=== PATIENT | female | born 1965 | race Caucasian/White ===

== ENCOUNTER 2016-10-11 19:34 | Emergency (ER) | payer OTHER ==
[2016-10-11 21:49] LABS: HEMOGLOBIN 13.8 gm/dl (12.3-15.3); RED BLOOD COUNT 4.58 M/UL (4.00-5.10); WHITE BLOOD COUNT 7.2 K/UL (4.5-11.0)
[2016-10-11 22:06] LABS: BUN/CREATININE RATIO 24 (0-10)
== END 2016-10-12 00:35 | disposition home or self-care (01) ==
LOC: ER1 19:34
PROVIDERS: Physician Assistant
DX: R07.9 Chest pain, unspecified (principal); R06.02 Shortness of breath; M79.662 Pain in left lower leg; M79.661 Pain in right lower leg; D68.2 Hereditary deficiency of other clotting factors; I10 Essential (primary) hypertension; J44.9 Chronic obstructive pulmonary disease, unspecified; Z88.0 Allergy status to penicillin; Z79.01 Long term (current) use of anticoagulants; Z86.718 Personal history of other venous thrombosis and embolism
CPT/HCPCS: 36415; 80053; 82550; 82553; 83874; 84484; 85025; 85610; 85730; 93005; 96361; 96372; 96374; 99284; J1650; J1885; J7050; Q9963

== ENCOUNTER 2020-09-18 19:10 | Emergency (ER) | payer OTHER ==
[~2020-09-18 19:10] MED LIST: CLINDAMYCIN HC150 MG PO; LODINE CAP 300300 MG PO
[2020-09-18 20:58] LABS: HEMOGLOBIN 10.2 gm/dl (12.3-15.3); RED BLOOD COUNT 3.72 M/UL (4.00-5.10); WHITE BLOOD COUNT 7.1 K/UL (4.5-11.0)
[2020-09-18 21:13] LABS: BUN/CREATININE RATIO 20 (0-10)
== END 2020-09-19 01:40 | disposition home or self-care (01) ==
LOC: ER1 19:10
PROVIDERS: Physician Assistant
DX: U07.1 COVID-19 (principal); I10 Essential (primary) hypertension; J45.909 Unspecified asthma, uncomplicated; R91.8 Other nonspecific abnormal finding of lung field; Z90.49 Acquired absence of other specified parts of digestive tract; Z90.710 Acquired absence of both cervix and uterus; Z87.442 Personal history of urinary calculi; Z79.899 Other long term (current) drug therapy; Z88.0 Allergy status to penicillin
CPT/HCPCS: 0240U; 71045; 80053; 82550; 82553; 83605; 83874; 84484; 85025; 85379; 87040; 93005; 96365; 96366; 96368; 99285; J0692; J3370; Q9967

== ENCOUNTER → 2021-08-21 | Outpatient (CLI) | payer OTHER | LOC: RAD 12:52 | DX: R05.9 Cough, unspecified (principal); M54.9 Dorsalgia, unspecified; M54.2 Cervicalgia; M43.8X4 Other specified deforming dorsopathies, thoracic region; R91.8 Other nonspecific abnormal finding of lung field | CPT/HCPCS: 71046; 72050; 72072; 72110 ==